=== PATIENT | female | born 1965 | race Caucasian/White ===

== ENCOUNTER 2022-06-08 13:52 | Inpatient (IN) ==
[2022-06-08 16:24] LABS: Appearance Urine Clear (Clear); Bilirubin Urine Negative (Negative); Blood Urine Negative (Negative); Color Urine Yellow; Glucose Urine UA Negative (Negative); Ketones Urine Negative (Negative); Leukocyte Esterase Urine Negative (Negative); Nitrite Urine Negative (Negative); Protein Urine Negative (Negative); Specific Gravity Urine 1.009 (1.000-1.030); Urobilinogen Urine Negative (Negative); pH Urine 5.5 (4.5-7.5)
[2022-06-08 16:43] LABS: Albumin Globulin Ratio 1.4 (0.9-2); BUN Creatinine Ratio 21.3 (10-20); Bilirubin,Total 0.7 mg/dl (0.2-1.0); Calcium 12.1 mg/dl (8.5-10.1); Creatinine Clr Calc Pharmacy 94.4 ml/min; Est GFR (African American) 101.8 ml/min; Est GFR (Non-African American) 87.9 ml/min; Globulin 3.7 gm/dl (2.5-4.0); Hematocrit (blood only) 48.6 % (34.1-44.9); Hemoglobin 17.3 g/dl (12.0-16.0); Mean Corpuscular Hgb Conc 35.6 g/dL (32.0-36.0); Mean Corpuscular Volume 92.7 fL (80.0-100.0); Mean Platelet Volume 11.5 fL (9.4-12.3); Platelet Count 87 K/uL (130-400); Potassium 3.8 mmol/L (3.5-5.1); RDW Coefficient of Variation 13.6 % (11.5-14.5); Red Blood Count 5.24 M/uL (3.93-5.22); Total Protein 8.7 gm/dl (6.0-8.3); White Blood Count 7.54 K/ul (4.8-10.8)
[2022-06-08 16:59] LABS: Basophils # (auto) 0.04 K/uL (0-0.2); Basophils % (auto) 0.5 %; Eosinophils % (auto) 1.3 %; Immature Granulocytes # (auto) 0.03 K/uL (0.00-0.02); Immature Granulocytes % (auto) 0.4 %; Lymphocytes # (auto) 2.71 K/uL (1.2-3.4); Lymphocytes % (auto) 35.9 %; Monocytes # (auto) 0.36 K/uL (0.24-0.82); Monocytes % (auto) 4.8 %; Neutrophils % (auto) 57.1 %; Platelet Estimate Decreased (Normal)
[2022-06-08] MEDS ORDERED: SODIUM CHLORIDE 0.9% 1000ML 1,000 ML IV ONE (18:12)
[2022-06-08] MEDS ORDERED: SODIUM CHLORIDE 0.9% 1000ML 1,000 ML IV STA (18:12)
[2022-06-08] MEDS ORDERED: HYDROmorphone INJ 0.5 MG/0.5 ML SYR IV PRN (18:40)
[2022-06-08] MEDS ORDERED: ONDANSETRON INJ 2 MG/ML 2 ML VIAL IV STA (18:40)
--- NOTE | 2022-06-08 18:40 | Emergency Department Note ---
Impression & Plan Hypercalcemia, Headache, Generalized abdominal pain ED Provider Note INFORMANT: Patient ED PROVIDER(S): Sid Alfaro MD CHIEF COMPLAINT: Abdominal pain PLAN: Disposition: Admitted Condition: Good Outpatient prescription management: none Referral: None MEDICAL DECISION MAKING: Patient presented because of abdominal pain. Work-up was initiated. She was found to have an elevated hemoglobin but has a history of hemochromatosis. Her platelet count was mildly low but she also has a history of ITP. Patient was found to have hypercalcemia. Her LFTs and urinalysis were unremarkable. Patient was hydrated. She received Zofran and Dilaudid for her abdominal pain complaints. CT imaging was performed of the abdomen pelvis and did not reveal any emergent pathology. Further management in the hospital was discussed and patient was in agreement. Consultation was made with the hospitalist service. Patient was admitted for further management. Triage Nursing notes reviewed and agree them. Vital Signs: reviewed and remarkable for no significant abnormalities Differential diagnosis: IBD, Appendicitis, PID, infections, diverticulitis, UTI, obstruction, mesenteric ischemia, aortic pathology, inflammatory bowel disease, renal colic, PUD, pancreatitis, biliary pathology, hernia, volvulus, constipation, as well as other pathologies. Diagnostics interpreted by me: ECG: none Cardiac Monitoring: Cardiac monitoring ordered by me: The patient was placed on continuous cardiac monitoring and observed. It revealed a normal sinus rhythm at 70 beats per minute without ectopy or evidence of dysrhythmia. Imaging studies: CT scan of the abdomen pelvis as noted below. I refer you to the EMR for further details. HPI: The patient is a 56 year old female who presents to the Emergency Room with complaints of abdominal pain. This started weeks ago and is generalized. The patient also notes the following associated symptoms, headache, nausea, diarrhea, vomiting, hematochezia. The patient has found no relieving factors. Current pain is rated as 9.5/10. Pt denies LOC, fevers, chills, diaphoresis, visual changes, neck pain, chest pain, breathing difficulties, back pain, melena, urinary symptoms, numbness, weakness, lymphadenopathy, rash, or other complaints. ROS: See above HPI for pertinent positives & negatives. A total of 10 systems reviewed and were otherwise negative. PAST MEDICAL HISTORY:See Below , ITP, hemochromatosis PAST SURGICAL HISTORY:See Below, FAMILY HISTORY:See Below SOCIAL HISTORY:See Below, retired HOME MEDICATIONS:See Below ALLERGIES:See Below VITALS:See Below PHYSICAL EXAMINATION: GENERAL: Awake, alert, uncomfortable-appearing, in no distress HENT: Normocephalic, atraumatic. Oropharynx unremarkable. EYES: Normal conjunctiva. Sclera non-icteric. NECK: Inspection normal. Non-tender. Supple. No nuchal rigidity. FROM. No masses. RESPIRATORY: Clear to auscultation. No wheezes. No rales. Normal respiratory effort. CARDIAC: Normal rate. Normal rhythm. No murmurs. No rubs. Extremities warm and well perfused. Pulses equal. No JVD. GI: Soft, non-distended. generalized tenderness to palpation. No rebound or guarding. No masses. RECTAL: Deferred. MUSCULOSKELETAL: Atraumatic. Chest examination reveals no tenderness. The back is symmetrical on inspection without obvious abnormality. There is no CVA tenderness to palpation. No joint edema. LOWER EXTREMITIES: Calves are equal size bilaterally and non-tender. No edema. No discoloration. NEURO: Normal sensorium. No sensory or motor deficits noted. SKIN: No rash or jaundice noted. Sid Alfaro MD Past Med/Surg History Medical History (Updated 06/08/22 @ 21:56 by David Choe PA-C) Chronic diarrhea Glaucoma Hearing deficit History of anesthesia reaction difficulty waking History of ITP History of kidney stones IBS (irritable bowel syndrome) 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 Lupus Tinnitus of both ears Surgical History H/O cervical spine surgery fusion--issue turning head to right side otherwise normal ROM History of colonoscopy History of endometrial ablation History of finger joint replacement of left hand middle finger History of liver biopsy History of surgery left eye/left ear mastoid surgery as a child History of tooth extraction S/P cholecystectomy S/P hysterectomy per pt states she had 2---one partial and then a total for 2nd Family History Father History of multiple strokes Black lung Myocardial infarction Cancer Mother Diabetes Alzheimer disease Heart disease Glaucoma Stroke Brother Prostate cancer Family/Other Lupus Sister Diabetes Hypertension Other No family history of adverse response to anesthesia Social History Smoking Status: Current every day smoker packs per day: 0.5; Cigarettes Per Day: 20; Second Hand Exposure: No; Do You Dip or Chew Tobacco: No; Hx Alcohol Use: No Hx Substance Use: Yes Last Used Substance: Days (ago) Last Used Substance Other:: Pt. states she last used marijuana 4 days ago Preferred Language: Kosovan Communication Ability: Effective Grinder And Honer Operator Automatic Required: No Beliefs That Will Affect Care: None Current Living Situation: Alone current occupational status: retired Other Information That Helps Us Care for You: No Feels Safe at Home: Yes Safety Concerns: Feels Safe At This Time Assistive Devices: Brace/Splint/Immobilizer, Denture - Upper and Glasses Allergies Allergies Allergy/AdvReac Type Severity Reaction Status Date / Time aspirin Allergy Severe vomits Verified 06/08/22 20:11 blood bupropion [From Wellbutrin] Allergy Severe Anaphylaxis Verified 06/08/22 20:11 lemon Allergy Severe Anaphylaxis Verified 06/08/22 20:11 [place] And Derivatives Allergy Intermediate hives, Verified 06/08/22 20:11 itchy, severe headache Penicillins Allergy Intermediate swelling, Verified 06/08/22 20:11 itchy, rash Sulfa (Sulfonamide Allergy Intermediate swelling, Verified 06/08/22 20:11 Antibiotics) itchy, rash jalapeno pepper Allergy Severe Anaphylaxis Uncoded 06/08/22 20:11 Home Meds Home Medications Medication Instructions Recorded Confirmed Delta 8 1 - 2 gummy PO HS 12/31/21 06/08/22 cholecalciferol (vitamin D3) 25 1,000 unit PO QAM 12/31/21 06/08/22 mcg (1,000 unit) tablet (Vitamin D3) ibuprofen 200 mg tablet 400 mg PO DAILY PRN Pain 12/31/21 06/08/22 Results & Data (ED) Vital Signs Vital Signs - 24 hr 06/08/22 14:44 06/08/22 17:21 06/08/22 20:09 Temperature 36.5 C Temperature Source Temporal Artery Scan Pulse Rate 78 Pulse Rate [Apical] 72 69 Pulse Rhythm [Apical] Regular Regular Pulse Strength [Apical] Normal Normal Respiratory Rate 18 18 15 Respiratory Effort / Characteristics Non-Labored Non-Labored Non-Labored Respiratory Depth Normal Normal Normal Respiratory Pattern Regular Regular Regular Blood Pressure 147/80 H Blood Pressure [Right Arm] 145/87 H 128/81 Blood Pressure Mean 102 Blood Pressure Mean [Right Arm] 106 96 Blood Pressure Position Sitting Blood Pressure Position [Right Arm] Sitting Sitting Pulse Oximetry 96 97 98 Oxygen Delivery Method Room Air Room Air Room Air Sepsis Recent Fever Within 48 Hours No Sepsis New/Unexplained Change in Mental Status No Sepsis Action Taken by Nursing No Action Required Laboratory Data Result diagrams: 06/08/22 15:50 06/08/22 15:50 Lab Results 06/08/22 06/08/22 06/08/22 Range/Units 15:50 15:50 15:50 WBC 7.54 (4.8-10.8) K/ul RBC 5.24 H (3.93-5.22) M/uL Hgb 17.3 H (12.0-16.0) g/dl Hct 48.6 H (34.1-44.9) % MCV 92.7 (80.0-100.0) fL MCH 33.0 (25.0-34.0) pg MCHC 35.6 (32.0-36.0) g/dL RDW Std Deviation 46.0 (36.4-46.3) fL RDW Coeff of Umer 13.6 (11.5-14.5) % Plt Count 87 L (130-400) K/uL MPV 11.5 (9.4-12.3) fL Immature Gran % (Auto) 0.4 % Neut % (Auto) 57.1 % Lymph % (Auto) 35.9 % Holt % (Auto) 4.8 % Eos % (Auto) 1.3 % Baso % (Auto) 0.5 % Neut # (Auto) 4.30 (1.4-6.5) K/uL Lymph # (Auto) 2.71 (1.2-3.4) K/uL Holt # (Auto) 0.36 (0.24-0.82) K/uL Eos # (Auto) 0.10 (0-0.50) K/uL Baso # (Auto) 0.04 (0-0.2) K/uL Immature Gran # (Auto) 0.03 H (0.00-0.02) K/uL Platelet Estimate Decreased L (Normal) Sodium 137 (136-145) mmol/L Potassium 3.8 (3.5-5.1) mmol/L Chloride 104 (98-107) mmol/L Carbon Dioxide 28 (21-32) mmol/L Anion Gap 5 (3-11) BUN 16 (6-23) mg/dl Creatinine 0.75 (0.6-1.2) mg/dl Est Cr Clr Drug Dosing 94.4 ml/min Est GFR ( Amer) 101.8 ml/min Est GFR (Non-Af Amer) 87.9 ml/min BUN/Creatinine Ratio 21.3 H (10-20) Glucose 88 (70-99(Fasting)) mg/dl Calcium 12.1 H* (8.5-10.1) mg/dl Total Bilirubin 0.7 (0.2-1.0) mg/dl AST 27 (13-39) U/L ALT 29 (7-52) U/L Alkaline Phosphatase 104 (34-104) U/L Total Protein 8.7 H (6.0-8.3) gm/dl Albumin 5.0 (3.4-5.0) gm/dl Globulin 3.7 (2.5-4.0) gm/dl Albumin/Globulin Ratio 1.4 (0.9-2) Lipase 32 (11-82) U/L TSH (0.300-4.500) uIu/ml Urine Color Yellow Urine Appearance Clear (Clear) Urine pH 5.5 (4.5-7.5) Ur Specific [place] 1.009 (1.000-1.030) Urine Protein Negative (Negative) Urine Glucose (UA) Negative (Negative) Urine Ketones Negative (Negative) Urine Blood Negative (Negative) Urine Nitrite Negative (Negative) Urine Bilirubin Negative (Negative) Urine Urobilinogen Negative (Negative) Ur Leukocyte Esterase Negative (Negative) SARS-CoV-2, RNA, NAAT (NEGATIVE) 06/08/22 06/08/22 Range/Units 15:50 20:10 WBC (4.8-10.8) K/ul RBC (3.93-5.22) M/uL Hgb (12.0-16.0) g/dl Hct (34.1-44.9) % MCV (80.0-100.0) fL MCH (25.0-34.0) pg MCHC (32.0-36.0) g/dL RDW Std Deviation (36.4-46.3) fL RDW Coeff of Umer (11.5-14.5) % Plt Count (130-400) K/uL MPV (9.4-12.3) fL Immature Gran % (Auto) % Neut % (Auto) % Lymph % (Auto) % Holt % (Auto) % Eos % (Auto) % Baso % (Auto) % Neut # (Auto) (1.4-6.5) K/uL Lymph # (Auto) (1.2-3.4) K/uL Holt # (Auto) (0.24-0.82) K/uL Eos # (Auto) (0-0.50) K/uL Baso # (Auto) (0-0.2) K/uL Immature Gran # (Auto) (0.00-0.02) K/uL Platelet Estimate (Normal) Sodium (136-145) mmol/L Potassium (3.5-5.1) mmol/L Chloride (98-107) mmol/L Carbon Dioxide (21-32) mmol/L Anion Gap (3-11) BUN (6-23) mg/dl Creatinine (0.6-1.2) mg/dl Est Cr Clr Drug Dosing ml/min Est GFR ( Amer) ml/min Est GFR (Non-Af Amer) ml/min BUN/Creatinine Ratio (10-20) Glucose (70-99(Fasting)) mg/dl Calcium (8.5-10.1) mg/dl Total Bilirubin (0.2-1.0) mg/dl AST (13-39) U/L ALT (7-52) U/L Alkaline Phosphatase (34-104) U/L Total Protein (6.0-8.3) gm/dl Albumin (3.4-5.0) gm/dl Globulin (2.5-4.0) gm/dl Albumin/Globulin Ratio (0.9-2) Lipase (11-82) U/L TSH 3.452 (0.300-4.500) uIu/ml Urine Color Urine Appearance (Clear) Urine pH (4.5-7.5) Ur Specific [place] (1.000-1.030) Urine Protein (Negative) Urine Glucose (UA) (Negative) Urine Ketones (Negative) Urine Blood (Negative) Urine Nitrite (Negative) Urine Bilirubin (Negative) Urine Urobilinogen (Negative) Ur Leukocyte Esterase (Negative) SARS-CoV-2, RNA, NAAT NEGATIVE (NEGATIVE) Administered Medications Enoxaparin Sodium (Enoxaparin Inj 40 Mg/0.4 Ml Syr) 40 mg SQ HS MEGAN Stop: 07/08/22 23:14 Last Admin: 06/08/22 23:12 Dose: Not Given Documented By: LL Sodium Chloride (Nss 1000ml) 1,000 mls @ 125 mls/hr IV .Q8H MEGAN Stop: 06/09/22 15:01 Last Admin: 06/08/22 23:12 Dose: 125 mls/hr Documented By: LL Ondansetron HCl (Ondansetron Inj 2 Mg/Ml 2 Ml Vial) 4 mg IV Q6H PRN PRN Reason: Nausea Stop: 07/09/22 02:12 Last Admin: 06/09/22 02:41 Dose: 4 mg Documented By: LL Discontinued Medications Hydromorphone HCl (Hydromorphone Inj 0.5 Mg/0.5 Ml Syr) 0.5 mg IV Q15M PRN PRN Reason: Pain Stop: 06/22/22 18:39 Last Admin: 06/08/22 18:45 Dose: 0.5 mg Documented By: RSL Sodium Chloride (Nss 1000ml) 1,000 mls @ 999 mls/hr IV .Q1H1M ONE Stop: 06/08/22 19:12 Last Infusion: 06/08/22 19:40 Dose: 0 mls/hr Documented By: Admin: 06/08/22 18:34 Dose: 999 mls/hr Documented By: RSL Sodium Chloride (Nss 1000ml) 1,000 mls @ 125 mls/hr IV .Q8H STA Stop: 06/09/22 02:11 Last Infusion: 06/08/22 23:08 Dose: 0 mls/hr Documented By: Infusion: 06/08/22 23:08 Dose: 0 mls/hr Documented By: Admin: 06/08/22 20:27 Dose: 125 mls/hr Documented By: RSL Sodium Chloride (Nss) 500 mls @ 100 mls/hr IV .Q5H MEGAN Stop: 07/09/22 09:14 Last Admin: 06/08/22 23:07 Dose: Not Given Documented By: LL Ioversol (Optiray 350 100ml) 87 ml IV ONCE ONE Stop: 06/08/22 19:17 Last Admin: 06/08/22 19:17 Dose: 87 ml Documented By: TUSHAR Morphine Sulfate (Morphine Sulfate 2 Mg/Ml Carp) 2 mg IV Q3H PRN PRN Reason: moderate to severe pain 5-10 Stop: 06/22/22 23:02 Last Admin: 06/09/22 00:46 Dose: 2 mg Documented By: DEANN Ondansetron HCl (Ondansetron Inj 2 Mg/Ml 2 Ml Vial) 4 mg IV NOW STA Stop: 06/08/22 18:41 Last Admin: 06/08/22 18:44 Dose: 4 mg Documented By: ANICETO Ondansetron HCl (Ondansetron Inj 2 Mg/Ml 2 Ml Vial) Confirm Administered Dose 4 mg .ROUTE .STK-MED ONE Stop: 06/09/22 02:41 Last Admin: 06/09/22 02:45 Dose: Not Given Documented By: DEANN Imaging Data Radiologist's Impression: Abdomen/Pelvis CT 06/08/22 18:[address] WITH IV CONTRAST CT DOSE: 473.97 mGy.cm HISTORY: generalized abd pain TECHNIQUE: Multiaxial CT images of the abdomen and pelvis were performed following the use of intravenous contrast. A dose lowering technique was utilized adhering to the principles of ALARA. COMPARISON STUDY: None. FINDINGS: Mild dependent changes seen within the lung bases. No pneumoperitoneum. No pneumatosis. No suspicious lytic are blastic osseous lesions. There is a single borderline enlarged anterior pericardial lymph node measuring 11 x 7 mm. Subcentimeter gastrohepatic and retroperitoneal lymph nodes do not meet CT criteria for pathologic involvement. The spleen is enlarged measuring 16 centers in length. No hepatic or splenic masses. The main portal vein is patent. Prior cholecystectomy. The pancreas, adrenal glands, and kidneys are unremarkable. Normal caliber abdominal aorta. No pelvic lymphadenopathy. The bladder is unremarkable. Prior hysterectomy. No pelvic free fluid. No bowel wall thickening or obstruction. Colonic diverticulosis. No evidence for acute diverticulitis. Normal appendix. IMPRESSION: 1. Splenomegaly measuring 16 cm in length. 2. A single prominent anterior pericardial lymph node measuring 11 x 7 mm. Otherwise, no lymphadenopathy identified within the abdomen or pelvis. 3. No bowel wall thickening or obstruction. 4. Normal appendix. 5. Colonic diverticulosis. No evidence for acute diverticulitis. 6. Prior cholecystectomy and hysterectomy. ACT 112: Negative or not required by law. Electronically signed by: Jake Wiseman M.D. 06/08/2022 7:52 PM Discharge Plan Visit Data Chief Complaint: Abdominal Pain Stated Complaint: ABDOMINAL PAIN, DIARRHEA ED Provider: Sid Alfaro Discharge Problem: Hypercalcemia, Headache, Generalized abdominal pain Patient Disposition: Admitted As Inpatient Discharge Instructions Interventions: ED Discharge Assessment Last Done: 06/08/22 22:12
[2022-06-08] MEDS ORDERED: OPTIRAY 350 100ml IV ONE (19:16)
--- NOTE | 2022-06-08 19:55 | CT Scan Report ---
ABDOMEN AND PELVIS CT WITH IV CONTRAST CT DOSE: 473.97 mGy.cm HISTORY: generalized abd pain TECHNIQUE: Multiaxial CT images of the abdomen and pelvis were performed following the use of intrave nous contrast. A dose lowering technique was utilized adhering to the principles of ALARA. COMPARISON STUDY: None. FINDINGS: Mild dependent changes seen within the lung bases. No pneumoperitoneum. No pneumatosis. No suspicious lytic are blastic osseous lesions. There is a single borderline enlarged anterior pericard ial lymph node measuring 11 x 7 mm. Subcentimeter gastrohepatic and retroperitoneal lymph nodes do no t meet CT criteria for pathologic involvement. The spleen is enlarged measuring 16 centers in length. No hepatic or splenic masses. The main portal vein is patent. Prior cholecystectomy. The pancreas, a drenal glands, and kidneys are unremarkable. Normal caliber abdominal aorta. No pelvic lymphadenopath y. The bladder is unremarkable. Prior hysterectomy. No pelvic free fluid. No bowel wall thickening or obstruction. Colonic diverticulosis. No evidence for acute diverticulitis. Normal appendix. IMPRESSION: 1. Splenomegaly measuring 16 cm in length. 2. A single prominent anterior pericardial lymph node measuring 11 x 7 mm. Otherwise, no lymphadenopa thy identified within the abdomen or pelvis. 3. No bowel wall thickening or obstruction. 4. Normal appendix. 5. Colonic diverticulosis. No evidence for acute diverticulitis. 6. Prior cholecystectomy and hysterectomy. ACT 112: Negative or not required by law. Electronically signed by: Jake Wiseman M.D. 06/08/2022 7:52 PM
--- NOTE | 2022-06-08 20:27 | History & Physical Report ---
Date of Service June 08, 2022 Assessment & Plan (1) Hypercalcemia: Plan: -Admit to med/tele -Patient is currently afebrile, hemodynamically stable and stable on RA -Likely multifactorial at this time including dehydration from diarrhea, current Vit D supplementation, and possible malignancy -Ionized calcium at 1.34, PTH level is pending -Will continue IV fluids overnight with NSS at 100 mL/hr, scheduled to drop off at 0900 tomorrow -Obtaining CT of the chest and neck for further evaluation of possible malignancies -Follow AM CBC, BMP, mag, and ionized calcium in the am (2) Generalized abdominal pain: Plan: -Likely related to her hypercalcemia and chronic diarrhea -No other acute causes noted besides splenomegaly on CT of the A/P -Will repeat stool PCR to rule out infectious causes, but she is without leuokocytosis at this time -Will start with tylenol for now (3) Headache: Plan: -Improved prior to my exam -Likely related to dehydration and hypercalcemia -No focal neuro defects noted, continue with tylenol for now (4) Cirrhosis: Plan: -Known to have SABILLON cirrhosis -Liver function is stable, continue to monitor (5) Weight loss: Plan: -Likely related to chronic diarrhea and possible malignancy, follow current workup (6) Chronic diarrhea: Plan: -See abdominal pain (7) History of ITP: Plan: -Platelets today at 87, continue to monitor (8) Thyroid mass: Plan: -Has history of known thyroid tumor with initial plans for removal that were delayed/fell off due to covid and insurance complications -Obtaining CT of the neck for further evaluation -Will order TSH with reflex T4 as well -Follow PTH level (9) Splenomegaly: Plan: -Likely from known ITP and hemochromatosis, follow current malignancy workup (10) Hemochromatosis: Plan: -Previously diagnosed -Is followed by Heme/onc and gets regular therapy -Monitor for now Plan The patinet was discussed with Dr. Francois at the time of admission History of Present Illness Chief Complaint: Headache, generalized abdominal pain, hypercalcemia Primary Care Provider: DO Javed Hutchisonise is a 56 year old female with a PMH significant for Lupus, Hemochromatosis, known thyroid tumor (has not been able to have it resected yet), ITP, current tobacco use with 30 + PPD history, chronic diarrhea, Reflex sympathetic dystrophy, cirrhosis, fibromyalgia who presented to the [facility] ED on 06/08/22 with complaints of headache, generalized abdominal pain, and hypercalcemia. In the ED the patient was found to be afebrile, hemodynamically stable, and stable on RA. Labs were remarkable for Hgb 17.3, RBC of 5.24, Hct 48.6 suggestive of hemoconcentration, platelet count of 87, stable renal function, Calcium of 12.1. CT of the abdomen and pelvis with IV contrast showed "splenomegaly, A single prominent anterior pericardial lymph node measuring 11 x 7 mm. Otherwise, no lymphadenopathy identified within the abdomen or pelvis. No bowel wall thickening or obstruction. Normal appendix. Colonic diverticulosis. No evidence for acute diverticulitis. Prior cholecystectomy and hysterectomy." In the ED the patient was given 1L NSS bolus, 0.5 mg IV Dilaudid, and 4 mg IV zofran prior to admission. At the time of the exam the patient was resting comfortably in bed with her son sitting bedside. History was obtained from both the patient and her son. They state that the patient has been having ongoing issues with chronic diarrhea and weight loss over the past 9 months-1 year. Over this period of time the patient states that she has lost approximately 100 lbs. She states that she has approximately 30-40 episodes of diarrhea daily. She is followed by GI (Dr. Bernardo) who has done an extensive workup for her diarrhea to this point, including colonoscopy on 01/05/22 which showed a 3mm poly in the cecum, 4 mm poly in the sigmoid colon, and non-bleeding internal hemorrhoids. She is scheduled to have an MR enterography via GI on June 30. She tells me that she has a known thyroid tumor and initially had plans for removal prior to [facility], which were delayed due to the pandemic and insurance issues. She is followed in the heme/onc clinic for her hemochromatosis and says that she gets monthly labs, she states that she receives treatment approximately monthly. While going over ROS the patient states that she has been experiencing frequently fevers and diaphoresis at night. She is currently only taking Vitamin D and prn ibuprofen for pain. She denies alcohol use and states that her mother and father both had cancer but cannot remember what type of cancer they had. She had 3 mastoidectomies at the age of 1 which caused chronic left eyelid drooping, she is unsure as to why she had the procedures at that time. She notes that she has been dealing with poor dental health and "tooth infections" recently and was put on trials of multiple antibiotics, of which she cannot remember. She and her son state that the antibiotics worsened her chronic diarrhea and she was taken off of them. She has been having chronic generalized abdominal pain and headaches but they were both worse today. I had a long discussion with the patient and her son regarding the currently laboratory findings and the differential. I explained that her hypercalcemia could be multifactorial including dehydration, possible associated hyperparathyroidism from her known tumor, and cancer. I explained that I am concerned for possible malignancy with her PMH and current history she and her son provided. She and her son expressed understanding and are in agreement with continuing a workup at this time. I spoke to the patient regarding code status, she is a conditional code and would want CPR and defibrillation if needed but does NOT want to be intubated. Allergies Allergy/AdvReac Type Severity Reaction Status Date / Time aspirin Allergy Severe vomits Verified 06/08/22 20:11 blood bupropion [From Wellbutrin] Allergy Severe Anaphylaxis Verified 06/08/22 20:11 lemon Allergy Severe Anaphylaxis Verified 06/08/22 20:11 Hur[place] And Derivatives Allergy Intermediate hives, Verified 06/08/22 20:11 itchy, severe headache Penicillins Allergy Intermediate swelling, Verified 06/08/22 20:11 itchy, rash Sulfa (Sulfonamide Allergy Intermediate swelling, Verified 06/08/22 20:11 Antibiotics) itchy, rash jalapeno pepper Allergy Severe Anaphylaxis Uncoded 06/08/22 20:11 Home Medications Medication Instructions Recorded Confirmed Type Delta 8 1 - 2 gummy PO HS 12/31/21 06/08/22 History cholecalciferol (vitamin D3) 25 1,000 unit PO QAM 12/31/21 06/08/22 History mcg (1,000 unit) tablet (Vitamin D3) ibuprofen 200 mg tablet 400 mg PO DAILY PRN Pain 12/31/21 06/08/22 History Past Med/Surg History Medical History (Updated 06/08/22 @ 21:56 by David Choe PA-C) Chronic diarrhea Glaucoma Hearing deficit History of anesthesia reaction difficulty waking History of ITP History of kidney stones IBS (irritable bowel syndrome) 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 Lupus Tinnitus of both ears Surgical History H/O cervical spine surgery fusion--issue turning head to right side otherwise normal ROM History of colonoscopy History of endometrial ablation History of finger joint replacement of left hand middle finger History of liver biopsy History of surgery left eye/left ear mastoid surgery as a child History of tooth extraction S/P cholecystectomy S/P hysterectomy per pt states she had 2---one partial and then a total for 2nd Family History Father History of multiple strokes Black lung Myocardial infarction Cancer Mother Diabetes Alzheimer disease Heart disease Glaucoma Stroke Brother Prostate cancer Family/Other Lupus Sister Diabetes Hypertension Other No family history of adverse response to anesthesia Social History Smoking Status: Current every day smoker packs per day: 0.5; Cigarettes Per Day: 20; Second Hand Exposure: No; Do You Dip or Chew Tobacco: No; Hx Alcohol Use: No Hx Substance Use: Yes Last Used Substance: Days (ago) Last Used Substance Other:: Pt. states she last used marijuana 4 days ago Preferred Language: Yemeni Communication Ability: Effective Ink Blender Required: No Beliefs That Will Affect Care: None Current Living Situation: Alone current occupational status: retired Other Information That Helps Us Care for You: No Feels Safe at Home: Yes Safety Concerns: Feels Safe At This Time Assistive Devices: Brace/Splint/Immobilizer, Denture - Upper and Glasses Review of Systems Review of Systems: Denies current fever, chills, headache, changes in vision, hearing, taste, and smell, chest pain, SOB, cough, abdominal pain, nausea, vomiting, diarrhea, hematemesis, melena, dysuria, hematuria, and recent falls. All systems have been reviewed and are otherwise negative. Physical Exam Physical Exam: Physical Exam: General: In no acute distress, older than stated age, chronically ill appearing HEENT: Normocephalic, atraumatic, no scleral icterus, pupils around round, symmetrical, and reactive to light, moist mucus membranes, poor dentition, thyromegaly noted Chest/Pulm: Large central mass noted just inferior to the thyroid is firm and non-tender to palpation, No respiratory distress, symmetrical chest expansion, decreased breath sounds in the BL lower extremities, Cardiac: RRR, no murmurs noted Abdomen: Negative for ascites and bruising, normoactive bowel sounds, soft, non-tender to palpation throughout Musculoskeletal: patient with full ROM of the BL upper extremities, known meniscal tear in the right knee causes decreased ROM due to pain Extremities: Radial, dorsalis pedis, and posterior tibial pulses are intact and symmetrical, no significant edema noted in the BL LE's Skin: Warm, dry, no rashes , lesions, or scars noted Neuro: Alert and oriented to person, place, month, year, and president, no focal defects, CN II-XII tested and intact (baseline left eyelid droop noted), no tremors noted Psych: No acute distress, calm and cooperative during the exam Results & Data Results & Data ([facility]) Vital Signs (Past 12 Hours) Vital Signs Temp Pulse Pulse Resp BP BP Pulse Ox 06/08/22 20:09 69 15 128/81 98 06/08/22 17:21 72 18 145/87 H 97 06/08/22 14:44 36.5 C 78 18 147/80 H 96 O2 Del Method 06/08/22 20:09 Room Air 06/08/22 17:21 Room Air 06/08/22 14:44 Room Air Laboratory Results Abnormal lab results 06/08/22 06/08/22 06/08/22 Range/Units 15:50 15:50 21:11 RBC 5.24 H (3.93-5.22) M/uL Hgb 17.3 H (12.0-16.0) g/dl Hct 48.6 H (34.1-44.9) % Plt Count 87 L (130-400) K/uL Immature Gran # (Auto) 0.03 H (0.00-0.02) K/uL Platelet Estimate Decreased L (Normal) BUN/Creatinine Ratio 21.3 H (10-20) Calcium 12.1 H* (8.5-10.1) mg/dl Ionized Calcium 1.34 H (1.12-1.32) mmol/L Total Protein 8.7 H (6.0-8.3) gm/dl Diagnostic Findings Abdomen/Pelvis CT 06/08/22 18:[address] WITH IV CONTRAST CT DOSE: 473.97 mGy.cm HISTORY: generalized abd pain TECHNIQUE: Multiaxial CT images of the abdomen and pelvis were performed following the use of intravenous contrast. A dose lowering technique was utilized adhering to the principles of ALARA. COMPARISON STUDY: None. FINDINGS: Mild dependent changes seen within the lung bases. No pneumoperitoneum. No pneumatosis. No suspicious lytic are blastic osseous lesions. There is a single borderline enlarged anterior pericardial lymph node measuring 11 x 7 mm. Subcentimeter gastrohepatic and retroperitoneal lymph nodes do not meet CT criteria for pathologic involvement. The spleen is enlarged measuring 16 centers in length. No hepatic or splenic masses. The main portal vein is patent. Prior cholecystectomy. The pancreas, adrenal glands, and kidneys are unremarkable. Normal caliber abdominal aorta. No pelvic lymphadenopathy. The bladder is unremarkable. Prior hysterectomy. No pelvic free fluid. No bowel wall thickening or obstruction. Colonic diverticulosis. No evidence for acute diverticulitis. Normal appendix. IMPRESSION: 1. Splenomegaly measuring 16 cm in length. 2. A single prominent anterior pericardial lymph node measuring 11 x 7 mm. Otherwise, no lymphadenopathy identified within the abdomen or pelvis. 3. No bowel wall thickening or obstruction. 4. Normal appendix. 5. Colonic diverticulosis. No evidence for acute diverticulitis. 6. Prior cholecystectomy and hysterectomy. ACT 112: Negative or not required by law. Electronically signed by: Jake Wiseman M.D. 06/08/2022 7:52 PM ECG Additional Comments: Will obtain baseline admission ECG Code Status & VTE Plan Code Status Limited code, NO intubation VTE Prophylaxis Plan VTE Prophylaxis will be ordered: Yes Supervising Physician Co-Signing Physician Notes Patient seen and examined, chart reviewed case discussed with CHASIDY Choe and I agree with the assessment and plan as above. In brief, patient is a 56yo female presenting with persistent diarrhea, significant unintention weight loss of 100# in the last year. Known thyroid tumor pending resection. Patient is afebrile, HD stable. Ill in appearance but non-toxic Skin -no rash, daley HEENT - NC/AT, PERRL, MMM, Neck supple, fullness to thyroid gland L>R with no palpable nodule per my exam, anterior chest fullness Heart - +S1/S2, regular Lungs - faint crackles in bases Abd - +BS, diffusely tender with palpation without rebound or guarding Ext - no edema Labs and images reviewed Assessment/Plan -IVF, workup hypercalcemia -Concern for malignancy given weight loss and constitutional symptoms -Remainder as above PG Care Time/CCT Total # of Minutes Spent Total Time Spent with Patient: Total time spent is greater than 50% in coordination of care (as documented) at patient's floor/unit and/or counseling patient: [place] [address] Initial Inpt Care Lvl 3 Patient Type New Medical Decision Making High Complexity Diagnoses Hypercalcemia E83.52 Generalized abdominal pain R10.84 Headache R51.9 Cirrhosis K74.60 Weight loss R63.4 Chronic diarrhea K52.9 History of ITP Z86.2 Thyroid mass E07.9 Splenomegaly R16.1 Hemochromatosis E83.119
[2022-06-08] MEDS ORDERED: SODIUM CHLORIDE 0.9% 500 ML IV SCH (22:35)
[2022-06-08] MEDS ORDERED: ACETAMINOPHEN 325 MG TAB PO PRN (22:35)
[2022-06-08] MEDS ORDERED: MoRPHine SULFATE 2 MG/ML CARP IV PRN (23:03)
--- NOTE | 2022-06-08 23:07 | Communication Note ---
Date of Service: June 08, 2022 messaged about med orders. 125mL/hr NSS x 2 bags of 1L. morphine 2mg IV q3h prn. removed prn tylenol regarding patient concern re: cirrhosis (can use w/ reduced daily limit). morphine resulted in nausea. switching to tramadol 25mg q8h prn
[2022-06-08] MEDS: SODIUM CHLORIDE 0.9% 1000ML 1,000 ML IV SCH (23:12)
[2022-06-08] MEDS ORDERED: ENOXAPARIN INJ 40 MG/0.4 ML SYR SQ SCH (23:15)
[2022-06-09] MEDS ORDERED: ONDANSETRON INJ 2 MG/ML 2 ML VIAL IV PRN (02:13)
[2022-06-09 02:29] LABS: Adenovirus F 40/41 PCR Not Detected (NotDetected); Astrovirus PCR Not Detected (NotDetected); Campylobacter PCR Not Detected (NotDetected); Clostridium diff Toxin A/B PCR Not Detected (NotDetected); Cryptosporidium PCR Not Detected (NotDetected); Cyclospora cayetanensis PCR Not Detected (NotDetected); Entamoeba histolytica PCR Not Detected (NotDetected); Enteroaggregative E.coli(EAEC) Not Detected (NotDetected); Enteropathogenic E.coli (EPEC) Not Detected (NotDetected); Enterotoxigenic E.coli (ETEC) Not Detected (NotDetected); Giardia lamblia PCR Not Detected (NotDetected); Norovirus GI/GII PCR Not Detected (NotDetected); Plesiomonas shigelloides PCR Not Detected (NotDetected); Rotavirus A PCR Not Detected (NotDetected); Salmonella PCR Not Detected (NotDetected); Sapovirus PCR Not Detected (NotDetected); Shiga-like Toxin E.coli (STEC) Not Detected (NotDetected); Shigella/Enteroinvasive E.coli Not Detected (NotDetected); Vibrio cholerae PCR Not Detected (NotDetected); Vibrio species PCR Not Detected (NotDetected); Yersinia enterocolitica PCR Not Detected (NotDetected)
[2022-06-09] MEDS ORDERED: ONDANSETRON INJ 2 MG/ML 2 ML VIAL ONE (02:40)
[2022-06-09] MEDS ORDERED: traMADol HCL 50 MG TABLET PO PRN ×2 (03:00→04:00)
[2022-06-09 07:11] LABS: BUN Creatinine Ratio 21.4 (10-20); Calcium 10.2 mg/dl (8.5-10.1); Creatinine Clr Calc Pharmacy 101.1 ml/min; Est GFR (African American) 110.7 ml/min; Est GFR (Non-African American) 95.5 ml/min; Magnesium 1.8 mg/dl (1.7-2.4); Potassium 3.8 mmol/L (3.5-5.1)
--- NOTE | 2022-06-09 07:12 | CT Scan Report ---
CT SCAN OF THE CERVICAL SPINE CLINICAL HISTORY: Unspecified malignancy. COMPARISON STUDY: No priors. TECHNIQUE: CT scan of the cervical spine is performed from the skull base to the upper thoracic spine . Images are reviewed in the axial, sagittal, and coronal planes. IV contrast was not administered fo r this examination. A dose lowering technique was utilized adhering to the principles of ALARA. CT DOSE: 839.54 mGy.cm FINDINGS: Skeletal structures: The skeletal structures are well mineralized. There is no evidence of fracture o r subluxation involving the cervical spine. Vertebral body height and alignment are maintained. There is straightening of the cervical lordosis. There is postsurgical change from anterior spinal fusion at C6-C7. Lucency around the hardware in C6 suggests loosening. Endplate erosion at C6-C7 is likely o n a postsurgical/degenerative basis. No lytic or blastic lesion is seen. The odontoid process and lat eral masses are intact. The atlantoaxial articulation is preserved nothing productive degenerative ch anges. The spinous processes appear intact. Intervertebral discs: There is evidence of discectomy at C6-C7. Mild disc space narrowing is noted at the remaining cervical levels. Central canal: Widely patent. Soft tissues: The prevertebral and paraspinous soft tissues are within normal limits. Calvarium: The visualized calvarium at the skull base appears intact. Brain parenchyma: Partially visualized brain parenchyma at the skull base is within normal limits. Sinuses and mastoids: The visualized paranasal sinuses are clear. There is trace left mastoid effusio n. The right mastoid air cells are well pneumatized. Cerumen is noted in the external auditory canals . Lung apices: Clear as visualized. IMPRESSION: 1. No acute bony abnormality is seen involving the cervical spine. 2. No lytic or blastic lesion is seen. 3. There is postsurgical change from anterior fusion at C6-C7. 4. Lucency around the hardware at C6 suggests loosening. 5. Endplate erosion at C6-C7 is likely on a postsurgical/degenerative basis. Clinical correlation rizwan l be required. ACT 112: Negative or not required by law. Electronically signed by: Erlin Weeks M.D. 06/09/2022 7:10 AM
[2022-06-09 07:18] LABS: Basophils # (auto) 0.02 K/uL (0-0.2); Basophils % (auto) 0.4 %; Eosinophils # (auto) 0.11 K/uL (0-0.50); Eosinophils % (auto) 2.3 %; Hematocrit (blood only) 39.9 % (34.1-44.9); Hemoglobin 14.1 g/dl (12.0-16.0); Immature Granulocytes # (auto) 0.02 K/uL (0.00-0.02); Immature Granulocytes % (auto) 0.4 %; Lymphocytes # (auto) 2.19 K/uL (1.2-3.4); Lymphocytes % (auto) 45.6 %; Mean Corpuscular Hemoglobin 32.8 pg (25.0-34.0); Mean Corpuscular Hgb Conc 35.3 g/dL (32.0-36.0); Mean Corpuscular Volume 92.8 fL (80.0-100.0); Mean Platelet Volume 11.9 fL (9.4-12.3); Monocytes # (auto) 0.32 K/uL (0.24-0.82); Monocytes % (auto) 6.7 %; Neutrophils # (auto) 2.14 K/uL (1.4-6.5); Neutrophils % (auto) 44.6 %; Platelet Count 70 K/uL (130-400); RDW Coefficient of Variation 13.7 % (11.5-14.5); RDW Standard Deviation 46.5 fL (36.4-46.3)
[2022-06-09] MEDS: SODIUM CHLORIDE 0.9% 1000ML 1,000 ML IV SCH (07:36)
--- NOTE | 2022-06-09 10:09 | CT Scan Report ---
CT OF THE CHEST WITHOUT IV CONTRAST CLINICAL HISTORY: Monitor for malignancy. COMPARISON STUDY: No previous studies for comparison. TECHNIQUE: Axial images of the chest were obtained without IV contrast. Images were reviewed in the axial, sagittal, and coronal planes. IV contrast was not administered for this examination. Automat ed exposure control was utilized for the study. A dose lowering technique was utilized adhering to t he principles of ALARA. FINDINGS: No enlarged axillary or hilar lymph nodes are present. There is a prominent 1.2 x 0.9 cm r ight cardiophrenic angle lymph node on image 174 of 291. Mild cardiomegaly is noted. There is a 2 cm nodule within the medial left breast on axial image 136. Although suboptimally assessed by CT, this a ppears circumscribed. No suspicious pulmonary nodules are identified. A few small nodules measuring u p to 4 mm are probably benign. The largest is within the right lower lobe on image 172. Linear and gr oundglass opacities reflect atelectasis. There is no consolidation to suggest pneumonia. There is no pneumothorax or pleural effusion. Central airways are patent. No suspicious lesions are identified wi thin the bony thorax. Splenomegaly is noted. This is better depicted on CT of the abdomen and pelvis. The gallbladder is surgically absent. IMPRESSION: 1. No convincing evidence for malignancy within the chest. 2. Prominent right cardiophrenic angle lymph node. Although indeterminate, this is probably benign. A follow-up chest CT in 6 months to ensure stability is recommended. 3. Suspected 2 cm left breast nodule. This appears circumscribed although is suboptimally assessed by CT. This may reflect a fibroadenoma however a mammogram and ultrasound are recommended for further e valuation to exclude malignancy. ACT 112: Positive. There are findings on this exam that require communication between the performing entity and the patient following Patient Test Result Information Act ([place] Act 112) guidelines. Electronically signed by: Vaughn Sims M.D. 06/09/2022 10:08 AM
--- NOTE | 2022-06-09 11:13 | Electrocardiogram Report ---
Test Reason : Blood Pressure : / mmHG Vent. Rate : 067 BPM Atrial Rate : 067 BPM P-R Int : 168 ms QRS Dur : 102 ms QT Int : 398 ms P-R-T Axes : 072 050 047 degrees QTc Int : 420 ms Sinus rhythm with occasional Premature ventricular complexes Otherwise normal ECG No previous ECGs available Confirmed by Tony Baig ([id number]) on 06/09/2022 11:13:10 AM Referred By: REFERRED SELF Confirmed By:Tony Baig
--- NOTE | 2022-06-09 12:39 | Discharge Summary ---
Date of Service June 09, 2022 Admission HPI Per Admitting Provider Lainey is a 56 year old female with a PMH significant for Lupus, Hemochromatosis, known thyroid tumor (has not been able to have it resected yet), ITP, current tobacco use with 30 + PPD history, chronic diarrhea, Reflex sympathetic dystrophy, cirrhosis, fibromyalgia who presented to the [facility] ED on 06/08/22 with complaints of headache, generalized abdominal pain, and hypercalcemia. In the ED the patient was found to be afebrile, hemodynamically stable, and stable on RA. Labs were remarkable for Hgb 17.3, RBC of 5.24, Hct 48.6 suggestive of hemoconcentration, platelet count of 87, stable renal function, Calcium of 12.1. CT of the abdomen and pelvis with IV contrast showed "splenomegaly, A single prominent anterior pericardial lymph node measuring 11 x 7 mm. Otherwise, no lymphadenopathy identified within the abdomen or pelvis. No bowel wall thickening or obstruction. Normal appendix. Colonic diverticulosis. No evidence for acute diverticulitis. Prior cholecystectomy and hysterectomy." In the ED the patient was given 1L NSS bolus, 0.5 mg IV Dilaudid, and 4 mg IV zofran prior to admission. At the time of the exam the patient was resting comfortably in bed with her son sitting bedside. History was obtained from both the patient and her son. They state that the patient has been having ongoing issues with chronic diarrhea and weight loss over the past 9 months-1 year. Over this period of time the patient states that she has lost approximately 100 lbs. She states that she has approximately 30-40 episodes of diarrhea daily. She is followed by GI (Dr. Bernardo) who has done an extensive workup for her diarrhea to this point, including colonoscopy on 01/05/22 which showed a 3mm poly in the cecum, 4 mm poly in the sigmoid colon, and non-bleeding internal hemorrhoids. She is scheduled t o have an MR enterography via GI on June 30. She tells me that she has a known thyroid tumor and initially had plans for removal prior to [facility], which were delayed due to the pandemic and insurance issues. She is followed in the heme/onc clinic for her hemochromatosis and says that she gets monthly labs, she states that she receives treatment approximately monthly. While going over ROS the patient states that she has been experiencing frequently fevers and diaphoresis at night. She is currently only taking Vitamin D and prn ibuprofen for pain. She denies alcohol use and states that her mother and father both had cancer but cannot remember what type of cancer they had. She had 3 mastoidectomies at the age of 1 which caused chronic left eyelid drooping, she is unsure as to why she had the procedures at that time. She notes that she has been dealing with poor dental health and "tooth infections" recently and was put on trials of multiple antibiotics, of which she cannot remember. She and her son state that the antibiotics worsened her chronic diarrhea and she was taken off of them. She has been having chronic generalized abdominal pain and headaches but they were both worse today. I had a long discussion with the patient and her son regarding the currently laboratory findings and the differential. I explained that her hypercalcemia could be multifactorial including dehydration, possible associated hyperparathyroidism from her known tumor, and cancer. I explained that I am concerned for possible malignancy with her PMH and current history she and her son provided. She and her son expressed understanding and are in agreement with continuing a workup at this time. I spoke to the patient regarding code status, she is a conditional code and would want CPR and defibrillation if needed but does NOT want to be intubated. Principal Diagnosis Suspected primary hyperparathyroidism producing hypercalcemia Discharge Exam General-alert and oriented x3, no fevers, no chills HEENT-head atraumatic and normocephalic, pupils equal and reactive to light, extraocular muscles intact Neck-no lymphadenopathy or thyromegaly, trachea midline Chest-clear to auscultation percussion. No rales wheezing or rhonchi Cardiac-regular rate and rhythm, normal S1 and S2, no murmurs Abdomen-normal bowel sounds, no hepatosplenomegaly. Chronic diffuse abdominal pain Extremities-no cyanosis, clubbing, or edema Neuro-cranial nerves II through XII intact, motor and sensory function within no rmal limits, strength symmetrical , no focal deficits Psych-normal affect, normal mood Discharge Data Allergies Allergy/AdvReac Type Severity Reaction Status Date / Time aspirin Allergy Severe vomits Verified 06/08/22 20:11 blood bupropion [From Wellbutrin] Allergy Severe Anaphylaxis Verified 06/08/22 20:11 lemon Allergy Severe Anaphylaxis Verified 06/08/22 20:11 [place] And Derivatives Allergy Intermediate hives, Verified 06/08/22 20:11 itchy, severe headache Penicillins Allergy Intermediate swelling, Verified 06/08/22 20:11 itchy, rash Sulfa (Sulfonamide Allergy Intermediate swelling, Verified 06/08/22 20:11 Antibiotics) itchy, rash jalapeno pepper Allergy Severe Anaphylaxis Uncoded 06/08/22 20:11 Ordered Studies 06/08/22 18:40 CT Abd and Pelvis [CT abd pelvis IV con only] Stat 06/08/22 21:06 CT chest without contrast [CT chest diagnostic wo con] Urgent CT neck [CT cervical spine wo con] Urgent Hospital Course (1) Hypercalcemia: Improved with IV fluids. PTH is markedly elevated consistent with primary hyperparathyroidism. This will need further outpatient evaluation by endocrinology most likely. She has chronic gastrointestinal pain and complaints and is getting current outpatient work-up. She is stable for discharge home. (2) Generalized abdominal pain: Continue outpatient GI evaluation and management. (3) Headache: Resolved (4) Cirrhosis: Known to have [place] cirrhosis. Liver function is stable (5) Weight loss: Likely related to chronic diarrhea and malabsorption. Continue outpatient management (6) Chronic diarrhea: Continue outpatient GI evaluation (7) History of ITP: No active bleeding or ecchymoses. Serial lab studies (8) Thyroid mass: Has history of known thyroid tumor with initial plans for removal that were delayed/fell off due to covid and insurance complications . She will need continued outpatient evaluation. (9) Splenomegaly: Likely from known ITP and hemochromatosis (10) Hemochromatosis: Previously diagnosed . Is followed by Heme/onc and gets regular therapy . (11) Hyperparathyroidism: Suspected primary hyperparathyroidism. PTH is markedly elevated. This would explain her hypercalcemia. Further outpatient evaluation and management warranted. Plan Discharge to home today, June 09. Follow-up with PCP as soon as possible. Total Time Total Time Spent Total Time Spent (In Minutes): 35 minutes Discharge Plan Discharge Items Patient Disposition: Home - Self-Care Reason For Visit: ABDOMINAL PAIN, HEADACHE Discharge Diagnosis: Suspected primary hyperparathyroidism, hypercalcemia Non-emergency contact: Primary Care Provider Call non-emergency contact if: you have any medication questions Follow-up/Referrals: Maria Eugenia Venegas DO [Primary Care Provider] - Diet: Regular Addtl Attending Provider Instructions: Avoid calcium supplements due to elevated calcium levels. Parathyroid gland status needs further evaluation. Continue outpatient gastro enterology evaluation for chronic abdominal pain and chronic diarrhea. Pending Studies at Discharge: No Stand-Alone Forms: My [facility], Smoking Cessation Medications and DC Order Prescriptions: Continued cholecalciferol (vitamin D3) [Vitamin D3] 25 mcg (1,000 unit) Tablet 1,000 unit PO QAM Delta 8 1 - 2 gummy PO HS ibuprofen 200 mg Tablet 400 mg PO DAILY PRN (Reason: Pain) Discharge Orders: Discharge Order (Routine); Ordered 06/09/22 Ordered By: Alo Koch Admission Data Admit Date/Time: 06/08/22 20:33 Attending Provider: Alo Koch Admit Provider: Manda Francois Primary Care Provider: Maria Eugenia Venegas Coding Level of Care Code D/C DAY MANAGEMENT >30 MINS Diagnoses Hypercalcemia E83.52 Generalized abdominal pain R10.84 Headache R51.9 Cirrhosis K74.60 Weight loss R63.4 Chronic diarrhea K52.9 History of ITP Z86.2 Thyroid mass E07.9 Splenomegaly R16.1 Hemochromatosis E83.119 Hyperparathyroidism E21.3
== END 2022-06-09 14:38 | disposition home or self-care (01) | DRG 644 ==
LOC: ED 13:52 → 2N 20:33 → SUATTDRO 20:33 → 2N 22:12